=== PATIENT | female | born 1945 | race Caucasian/White ===

== ENCOUNTER → 2020-10-15 | Outpatient (CLI) | payer OTHER | END | disposition home or self-care (01) | LOC: RAH 14:52 | PROVIDERS: ATTEND Physical Medicine & Rehabilitation | DX: M46.92 Unspecified inflammatory spondylopathy, cervical region (principal); M50.323 Other cervical disc degeneration at C6-C7 level | CPT/HCPCS: 72040 ==

== ENCOUNTER → 2020-11-15 | Outpatient (CLI) | payer OTHER | END | disposition home or self-care (01) | LOC: RAH 10:47 | PROVIDERS: ATTEND Physical Medicine & Rehabilitation | DX: M50.123 Cervical disc disorder at C6-C7 level with radiculopathy (principal) | CPT/HCPCS: 72141 ==

== ENCOUNTER 2023-06-12 18:17 | Emergency (ER) | payer MEDICARE ==
[~2023-06-12] VITALS: Ht 162.6 cm; Wt 57.2 kg
[2023-06-12] MEDS ORDERED: HYDROMORPHONE 1 MG INJ IM ONE (23:30)
[2023-06-12 23:34] VITALS: BP 142/74; PULSE 80; RESP 14; O2SAT 98
[2023-06-13] MEDS ORDERED: HYDR-4060 PO (00:25)
== END 2023-06-13 00:33 | disposition home or self-care (01) ==
LOC: EDH 18:17
DX: G89.4 Chronic pain syndrome (principal); M54.2 Cervicalgia; M47.892 Other spondylosis, cervical region; I10 Essential (primary) hypertension; Z88.6 Allergy status to analgesic agent; Z90.710 Acquired absence of both cervix and uterus
CPT/HCPCS: 99284; 84484; 96372; 93005; J1170

== ENCOUNTER → 2024-02-09 | Outpatient (CLI) | payer MEDICARE ==
[~2024-02-09] MED LIST: HYDR-4060 PO
== END | disposition home or self-care (01) ==
LOC: RAH 08:42
PROVIDERS: ATTEND Internal Medicine
DX: N28.1 Cyst of kidney, acquired (principal); N20.0 Calculus of kidney; N32.89 Other specified disorders of bladder; R10.9 Unspecified abdominal pain; Z90.710 Acquired absence of both cervix and uterus
CPT/HCPCS: 76700; 76856